=== PATIENT | female | born 1940 | race Caucasian/White ===

== ENCOUNTER 2018-03-22 04:43 | Inpatient (IN) | payer OTHER ==
[~2018-03-22] VITALS: Ht 147.3 cm; Wt 50.8 kg
[~2018-03-22 04:43] MED LIST: POLY119PG PO; SURFAK240 M1 PO; ULTRACET PO
[2018-03-22] MEDS ORDERED: GLIMEPIRIDE1 MG (04:50)
[2018-03-22] MEDS ORDERED: COZAAR50 MG (04:51)
[2018-03-22] MEDS ORDERED: LIPITOR40 MG (04:52)
[2018-04-05] MEDS ORDERED: LIPITOR40 MG PO (15:18)
[2018-04-05] MEDS ORDERED: LISINOPRIL20 MG PO (15:19)
[2018-04-05] MEDS ORDERED: ISOSORBIDE MONO30 MG PO (15:19)
[2018-04-05] MEDS ORDERED: ASA-EC81 MG PO (15:20)
[2018-04-05] MEDS ORDERED: TOPROL XL50 M1 PO (15:20)
[2018-04-05] MEDS ORDERED: FUROSEMIDE40 MG PO (15:21)
[2018-04-05] MEDS ORDERED: GLIMEPIRIDE1 MG PO (15:23)
== END 2018-04-05 17:44 | disposition home or self-care (01) | DRG 291 ==
LOC: ER 04:43 → MEDJ 18:32 → MEDI 18:32 → MEDJ 03-28 15:04
PROC: BB24ZZZ Computerized Tomography (CT Scan) of Bilateral Lungs (ICD-10-PCS; principal; 2018-03-22)
PROC: 3E0F7GC Introduction of Other Therapeutic Substance into Respiratory Tract, Via Natural or Artificial Opening (ICD-10-PCS; 2018-03-22)
PROC: 4A033R1 Measurement of Arterial Saturation, Peripheral, Percutaneous Approach (ICD-10-PCS; 2018-03-22)
PROC: B246ZZZ Ultrasonography of Right and Left Heart (ICD-10-PCS; 2018-03-22)
PROC: 4A12X4Z Monitoring of Cardiac Electrical Activity, External Approach (ICD-10-PCS; 2018-03-23)
PROC: 5A09457 Assistance with Respiratory Ventilation, 24-96 Consecutive Hours, Continuous Positive Airway Pressure (ICD-10-PCS; 2018-03-23)
PROC: 30233N1 Transfusion of Nonautologous Red Blood Cells into Peripheral Vein, Percutaneous Approach (ICD-10-PCS; 2018-03-25)
PROC: 02HV33Z Insertion of Infusion Device into Superior Vena Cava, Percutaneous Approach (ICD-10-PCS; 2018-03-27)
PROC: 8E0ZXY6 Isolation (ICD-10-PCS; 2018-03-28)
PROC: C23GYZZ Positron Emission Tomographic (PET) Imaging of Myocardium using Other Radionuclide (ICD-10-PCS; 2018-04-03)
PROC: 4A12XM4 Monitoring of Cardiac Stress, External Approach (ICD-10-PCS; 2018-04-03)
PROC: 3E033HZ Introduction of Radioactive Substance into Peripheral Vein, Percutaneous Approach (ICD-10-PCS; 2018-04-03)
DX: I11.0 Hypertensive heart disease with heart failure (principal); J18.9 Pneumonia, unspecified organism; J81.0 Acute pulmonary edema; J90 Pleural effusion, not elsewhere classified; I31.3 Pericardial effusion (noninflammatory); I24.9 Acute ischemic heart disease, unspecified; N17.8 Other acute kidney failure; B02.8 Zoster with other complications; I50.33 Acute on chronic diastolic (congestive) heart failure; I35.1 Nonrheumatic aortic (valve) insufficiency; E11.9 Type 2 diabetes mellitus without complications; E78.4 Other hyperlipidemia; I34.0 Nonrheumatic mitral (valve) insufficiency; D64.89 Other specified anemias; R09.02 Hypoxemia; Z85.3 Personal history of malignant neoplasm of breast

== ENCOUNTER 2021-06-25 10:39 | Outpatient (CLI) | payer OTHER ==
[~2021-06-25 10:39] MED LIST changes: +ASA-EC81 MG PO; +COZAAR50 MG; +FUROSEMIDE40 MG PO; +GLIMEPIRIDE1 MG; +GLIMEPIRIDE1 MG PO; +ISOSORBIDE MONO30 MG PO; +LIPITOR40 MG; +LIPITOR40 MG PO; +LISINOPRIL20 MG PO; +TOPROL XL50 M1 PO
== END 2021-06-25 10:44 | disposition home or self-care (01) ==
LOC: TOM 10:39
PROVIDERS: ATTEND Internal Medicine Pulmonary Disease
DX: J91.8 Pleural effusion in other conditions classified elsewhere (principal); I34.0 Nonrheumatic mitral (valve) insufficiency

== ENCOUNTER 2021-09-12 12:30 | Inpatient (IN) | payer OTHER ==
[~2021-09-12] VITALS: Ht 147.3 cm; Wt 50.8 kg
[2021-09-18] MEDS ORDERED: XOPENEX0.63 MG/3 IH (15:26)
[2021-09-18] MEDS ORDERED: LOSARTAN POTAS100 MG PO (15:26)
[2021-09-18] MEDS ORDERED: AMLODIPINE BESYL5 MG PO (15:26)
[2021-09-18] MEDS ORDERED: FUROSEMIDE40 MG PO (15:27)
[2021-09-18] MEDS ORDERED: TOPROL XL50 M1 PO (15:27)
[2021-09-18] MEDS ORDERED: PANTOPRAZOLE SO40 MG PO (15:28)
[2021-09-18] MEDS ORDERED: BENZONATATE100 MG PO (15:28)
[2021-09-18] MEDS ORDERED: CARAFATE1 GM PO (15:28)
[2021-09-18] MEDS ORDERED: LEVOTHYROXINE25 MCG PO (15:29)
[2021-09-18] MEDS ORDERED: ISOSORBIDE MONO30 MG PO (15:32)
[2021-09-18] MEDS ORDERED: INTEGRA PLUS C1 EACH PO (15:32)
[2021-09-18] MEDS ORDERED: LIPITOR40 MG PO (15:32)
== END 2021-09-18 18:00 | DRG 193 ==
LOC: ER 12:30 → MEDJ 09-13 02:59 → SEC-K 09-13 04:29 → MEDJ 09-13 04:51
PROVIDERS: ADMIT Internal Medicine; ATTEND Internal Medicine
PROC: 4A033R1 Measurement of Arterial Saturation, Peripheral, Percutaneous Approach (ICD-10-PCS; principal; 2021-09-13)
PROC: 3E0F7GC Introduction of Other Therapeutic Substance into Respiratory Tract, Via Natural or Artificial Opening (ICD-10-PCS; 2021-09-13)
PROC: BW25ZZZ Computerized Tomography (CT Scan) of Chest, Abdomen and Pelvis (ICD-10-PCS; 2021-09-13)
PROC: 3E0F7SF Introduction of Other Gas into Respiratory Tract, Via Natural or Artificial Opening (ICD-10-PCS; 2021-09-13)
PROC: B24BZZZ Ultrasonography of Heart with Aorta (ICD-10-PCS; 2021-09-14)
PROC: B54MZZZ Ultrasonography of Right Upper Extremity Veins (ICD-10-PCS; 2021-09-18)
DX: J18.9 Pneumonia, unspecified organism (principal); J81.0 Acute pulmonary edema; J90 Pleural effusion, not elsewhere classified; I31.3 Pericardial effusion (noninflammatory); I11.0 Hypertensive heart disease with heart failure; I50.9 Heart failure, unspecified; I25.10 Atherosclerotic heart disease of native coronary artery without angina pectoris; D64.9 Anemia, unspecified; E87.6 Hypokalemia; E78.5 Hyperlipidemia, unspecified; Z20.822 Contact with and (suspected) exposure to COVID-19